=== PATIENT | female | born 1970 | race Hispanic/Latino ===

== ENCOUNTER 2023-07-10 05:21 | Inpatient (IN) | payer OTHER ==
[~2023-07-10] VITALS: Ht 157.5 cm; Wt 74.8 kg
[2023-07-10 05:53] LABS: BASOPHILS % 0.3 % (0.0-1.0); EOSINOPHILS % 0.3 % (0.0-6.0); HEMATOCRIT 40.6 % (34.2-44.1); HEMOGLOBIN 13.9 g/dL (12.0-16.0); LYMPHOCYTES # (AUTO) 0.7 (1.0-3.2); LYMPHOCYTES % 6.4 % (18.0-39.1); MEAN CORPUSCULAR HEMOGLOBIN 31.8 pg (28-32); MEAN CORPUSCULAR HGB CONC 34.2 g/dL (31-35); MEAN CORPUSCULAR VOLUME 92.9 fL (81-99); MONOCYTES % 0.3 % (4.4-11.3); NEUTROPHILS # (AUTO) 10.6 (2.1-6.9); NEUTROPHILS % 92.3 % (38.7-80.0); PLATELET COUNT 217 x10e3/uL (140-360); RED BLOOD COUNT 4.37 x10e6/uL (3.6-5.1); RED CELL DISTRIBUTION WIDTH 12.6 % (11.7-14.4); WHITE BLOOD COUNT 11.44 x10e3/uL (4.8-10.8)
[2023-07-10 06:03] LABS: BILIRUBIN,URINE NEGATIVE (NEGATIVE); CLARITY,URINE CLOUDY (CLEAR); COLOR,URINE YELLOW (YELLOW); GLUCOSE, URINE NEGATIVE (NEGATIVE); KETONES,URINE NEGATIVE (NEGATIVE); LEUKOCYTE ESTERASE ,URINE SMALL (NEGATIVE); NITRITE,URINE NEGATIVE (NEGATIVE); PH,URINE 6 (5 - 7); PROTEIN,URINE DIPSTICK TRACE (NEGATIVE); URINE UROBILINOGEN 0.2 mg/dL (0.2 - 1)
[2023-07-10 06:13] LABS: ALBUMIN 4.1 g/dL (3.5-5.0); ALBUMIN/GLOBULIN RATIO 1.3 (0.8-2.0); ANION GAP 14.8 mmol/L (8-16); BILIRUBIN,TOTAL 0.4 mg/dL (0.2-1.2); CALCIUM 8.8 mg/dL (8.4-10.2); CREATININE, SERUM 0.99 mg/dL (0.57-1.11); POTASSIUM 3.8 mmol/L (3.5-5.1); TOTAL PROTEIN 7.3 g/dL (6.5-8.1)
[2023-07-10] MEDS ORDERED: KETOROLAC TROMETHAMINE 30 MG/ML VIAL ONE ×2 (06:18→19:44)
[2023-07-10] MEDS ORDERED: ONDANSETRON HCL INJ 2MG/ML 2ML 2 MG/ML VIAL ONE ×3 (06:19→19:44)
[2023-07-10] MEDS ORDERED: SODIUM CHLORIDE 0.9% 1000ML 1,000 ML ONE ×2 (06:19→09:59)
[2023-07-10] MEDS: SODIUM CHLORIDE 0.9% 1000ML 1,000 ML IV STA (06:20)
[2023-07-10] MEDS: ONDANSETRON HCL INJ 2MG/ML 2ML 2 MG/ML VIAL IV STA ×2 (06:20→07:57)
[2023-07-10] MEDS: KETOROLAC TROMETHAMINE 30 MG/ML VIAL IV STA (06:20)
[2023-07-10 06:39] LABS: BACTERIA,URINE MODERATE /HPF; EPITHELIAL CELLS,URINE MODERATE /LPF; RBC,URINE 21-50 /HPF (0-5); WBC,URINE (MAN) >50 /HPF (0-5)
[2023-07-10] MEDS ORDERED: Morphine 4mg INJECTION 4 MG/ML INJ ONE ×2 (08:03→19:44)
[2023-07-10] MEDS: Morphine 4mg INJECTION 4 MG/ML INJ IV STA (08:04)
[2023-07-10] MEDS ORDERED: ONDANSETRON HCL INJ 2MG/ML 2ML 2 MG/ML VIAL IV PRN (09:30)
[2023-07-10] MEDS ORDERED: Morphine 4mg INJECTION 4 MG/ML INJ IV PRN (09:30)
[2023-07-10] MEDS ORDERED: HYDROMORPHONE 1MG/1ML INJ ONE ×2 (09:40→19:44)
[2023-07-10] MEDS: HYDROMORPHONE 1MG/1ML INJ IV PRN (09:47)
[2023-07-10] MEDS: SODIUM CHLORIDE 0.9% 1000ML 1,000 ML IV SCH (10:02)
[2023-07-10] MEDS ORDERED: ACETAMINOPHEN 1000 MG/100 ML 100 ML IV ONE (10:32)
[2023-07-10] MEDS: ACETAMINOPHEN 1000 MG/100 ML IV ONE (10:41)
[2023-07-10 11:43] LABS: INR 0.89; PROTHROMBIN TIME 12.7 seconds (11.9-14.5)
[2023-07-10] MEDS ORDERED: ACETAMINOPHEN 1000 MG/100 ML IV PRN (12:00)
[2023-07-10 12:16] VITALS: BP 103/61; PULSE 78; RESP 18; TEMP 98.3; O2SAT 97
[2023-07-10] MEDS ORDERED: METFORMIN HCL500 MG PO (12:31)
[2023-07-10] MEDS ORDERED: LISINOPRIL-HCT1 EAC1 PO (12:32)
[2023-07-10 13:00] VITALS: BP 103/61; PULSE 78; RESP 18; TEMP 98.3; O2SAT 97
[2023-07-10] MEDS ORDERED: LIDOCAINE HCL 1% LOCAL INJ 20 ML VIAL ONE (15:29)
[2023-07-10] MEDS ORDERED: SODIUM CHLORIDE 0.9% 250ML 250 ML ONE ×2 (15:29→15:34)
[2023-07-10] MEDS ORDERED: IOPAMIDOL 370 MG/ML 100 ML INFUS..BTL INJ ONE ×2 (15:29)
[2023-07-10] MEDS ORDERED: MIDAZOLAM HCL 2 MG/2 ML VIAL ONE (15:33)
[2023-07-10] MEDS ORDERED: FENTANYL CITRATE/PF 100MCG/2 ML INJ ONE (15:33)
[2023-07-10 17:30] VITALS: BP 112/68; PULSE 80; RESP 18; TEMP 98.6; O2SAT 98
[2023-07-10 18:49] LABS: COLOR,URINE YELLOW (YELLOW)
[2023-07-10 18:50] LABS: CLARITY,URINE TURBID (CLEAR)
[2023-07-10 18:52] LABS: BILIRUBIN,URINE NEGATIVE (NEGATIVE); GLUCOSE, URINE NEGATIVE (NEGATIVE); KETONES,URINE NEGATIVE (NEGATIVE); LEUKOCYTE ESTERASE ,URINE SMALL (NEGATIVE); NITRITE,URINE NEGATIVE (NEGATIVE); PH,URINE 5.5 (5 - 7); PROTEIN,URINE DIPSTICK TRACE (NEGATIVE); URINE UROBILINOGEN 0.2 mg/dL (0.2 - 1)
[2023-07-10 18:54] LABS: BACTERIA,URINE MANY /HPF; EPITHELIAL CELLS,URINE FEW /LPF; RBC,URINE >50 /HPF (0-5); WBC,URINE (MAN) >50 /HPF (0-5)
[2023-07-10] MEDS ORDERED: POLYETHYLENE GLYCOL 3350 17 GM PACK PO PRN (19:30)
[2023-07-10] MEDS ORDERED: METOPROLOL TARTRATE INJ 1 MG/ML VIAL IV PRN (19:30)
[2023-07-10] MEDS ORDERED: ACETAMINOPHEN 1000 MG/100 ML IV ONE (19:44)
[2023-07-10] MEDS ORDERED: SODIUM CHLORIDE 0.9% 1000 ML BAG ONE (19:44)
[2023-07-10 20:00] VITALS: BP 104/64; PULSE 88; RESP 18; TEMP 98.7; O2SAT 97
[2023-07-11] VITALS (10 sets, daily range): BP systolic 95–134; BP diastolic 36–73; PULSE 70–101; RESP 16–20; TEMP 98.3–100.3; O2SAT 90–98
[2023-07-11] MEDS ORDERED: CEFTRIAXONE 1 GM VIAL ONE ×2 (05:20→10:17)
[2023-07-11 05:32] LABS: BASOPHILS # (AUTO) 0.1 (0.0-0.1); BASOPHILS % 0.3 % (0.0-1.0); EOSINOPHILS # (AUTO) 0.1 (0.0-0.4); EOSINOPHILS % 0.3 % (0.0-6.0); HEMATOCRIT 37.3 % (34.2-44.1); HEMOGLOBIN 12.4 g/dL (12.0-16.0); LYMPHOCYTES # (AUTO) 0.7 (1.0-3.2); MEAN CORPUSCULAR HEMOGLOBIN 31.1 pg (28-32); MEAN CORPUSCULAR HGB CONC 33.2 g/dL (31-35); MEAN CORPUSCULAR VOLUME 93.5 fL (81-99); MONOCYTES # (AUTO) 0.8 (0.2-0.8); MONOCYTES % 3.3 % (4.4-11.3); NEUTROPHILS # (AUTO) 21.7 (2.1-6.9); NEUTROPHILS % 89.4 % (38.7-80.0); PLATELET COUNT 145 x10e3/uL (140-360); RED BLOOD COUNT 3.99 x10e6/uL (3.6-5.1); RED CELL DISTRIBUTION WIDTH 13.4 % (11.7-14.4); WHITE BLOOD COUNT 24.25 x10e3/uL (4.8-10.8)
[2023-07-11] MEDS ORDERED: HYDROMORPHONE 1MG/1ML INJ ONE ×2 (05:46→10:17)
[2023-07-11 06:02] LABS: ALBUMIN 3.1 g/dL (3.5-5.0); ALBUMIN/GLOBULIN RATIO 1.1 (0.8-2.0); ANION GAP 15.9 mmol/L (8-16); BILIRUBIN,TOTAL 0.5 mg/dL (0.2-1.2); CALCIUM 8.3 mg/dL (8.4-10.2); CREATININE, SERUM 1.19 mg/dL (0.57-1.11); POTASSIUM 3.9 mmol/L (3.5-5.1)
[2023-07-11 06:17] LABS: MAGNESIUM 1.3 MG/DL (1.3-2.1); PHOSPHORUS 2.7 MG/DL (2.3-4.7)
[2023-07-11 06:39] LABS: FREE T4 (FREE THYROXINE) 0.89 ng/dL (0.8-1.8); THYROID STIMULATING HORMONE 0.37 uIU/mL (0.350-4.940)
[2023-07-11 08:54] LABS: BAND NEUTROPHILS % (MANUAL) 8 %; LYMPHOCYTES % (MANUAL) 3 % (19-48); METAMYELOCYTES % (MANUAL) 5 % (0-0); MONOCYTES % (MANUAL) 3 % (3.4-9.0); NEUTROPHILS % (MANUAL) 81 % (40-74); PLATELET ESTIMATE ADEQUATE
[2023-07-11 08:55] LABS: PLATELET MORPHOLOGY COMMENT NORMAL; RBC MORPHOLOGY COMMENT NORMAL
[2023-07-11] MEDS ORDERED: DOCUSATE SODIUM 100 MG CAP ONE ×2 (10:06→10:17)
[2023-07-11] MEDS ORDERED: MAGNESIUM SULFATE 2GM/50ML 50 ML IV ONE (10:07)
[2023-07-11] MEDS ORDERED: PANTOPRAZOLE SOD 40 MG TABEC ONE ×2 (10:07→10:17)
[2023-07-11] MEDS ORDERED: MAGNESIUM SULFATE 2GM/50ML IV ONE (10:17)
[2023-07-11] MEDS ORDERED: Sodium Chloride 0.9% 50ML Bag ONE (10:17)
[2023-07-11] MEDS ORDERED: ONDANSETRON HCL 4 MG ORAL DISINTEGRATING TAB PO PRN (11:00)
[2023-07-11] MEDS: MAGNESIUM SULFATE 2GM/50ML 50 ML IV ONE (11:07)
[2023-07-11] MEDS: DOCUSATE SODIUM 100 MG CAP PO SCH (11:07)
[2023-07-11] MEDS: PANTOPRAZOLE SOD 40 MG TABEC PO SCH (11:07)
[2023-07-12] VITALS (11 sets, daily range): BP systolic 119–149; BP diastolic 64–96; PULSE 66–91; RESP 16–20; TEMP 97.2–99.1; O2SAT 94–98
[2023-07-12 05:38] LABS: BASOPHILS % 0.2 % (0.0-1.0); EOSINOPHILS # (AUTO) 0.1 (0.0-0.4); EOSINOPHILS % 0.3 % (0.0-6.0); HEMATOCRIT 32.8 % (34.2-44.1); HEMOGLOBIN 11.4 g/dL (12.0-16.0); LYMPHOCYTES # (AUTO) 1.2 (1.0-3.2); LYMPHOCYTES % 6.3 % (18.0-39.1); MEAN CORPUSCULAR HEMOGLOBIN 32.1 pg (28-32); MEAN CORPUSCULAR HGB CONC 34.8 g/dL (31-35); MEAN CORPUSCULAR VOLUME 92.4 fL (81-99); MONOCYTES # (AUTO) 0.6 (0.2-0.8); MONOCYTES % 3.1 % (4.4-11.3); NEUTROPHILS # (AUTO) 15.7 (2.1-6.9); NEUTROPHILS % 85.5 % (38.7-80.0); PLATELET COUNT 126 x10e3/uL (140-360); RED BLOOD COUNT 3.55 x10e6/uL (3.6-5.1); RED CELL DISTRIBUTION WIDTH 13.5 % (11.7-14.4)
[2023-07-12 06:19] LABS: ANION GAP 10.9 mmol/L (8-16); CALCIUM 8.7 mg/dL (8.4-10.2); CREATININE, SERUM 0.7 mg/dL (0.57-1.11); MAGNESIUM 2.1 MG/DL (1.3-2.1); POTASSIUM 3.9 mmol/L (3.5-5.1)
[2023-07-12] MEDS: ACETAMINOPHEN 325 MG TAB PO PRN (09:09)
[2023-07-12 10:39] LABS: BAND NEUTROPHILS % (MANUAL) 3 %; LYMPHOCYTES % (MANUAL) 6 % (19-48); MONOCYTES % (MANUAL) 5 % (3.4-9.0); NEUTROPHILS % (MANUAL) 86 % (40-74)
[2023-07-12 10:40] LABS: PLATELET ESTIMATE SLIGHTLY DECREASED; PLATELET MORPHOLOGY COMMENT NORMAL; RBC MORPHOLOGY COMMENT NORMAL
[2023-07-12] MEDS ORDERED: DOCUSATE SODIUM 100 MG CAP ONE ×2 (16:16→17:38)
[2023-07-12] MEDS ORDERED: CEFTRIAXONE 1 GM VIAL ONE ×2 (16:16→17:38)
[2023-07-12] MEDS ORDERED: ACETAMINOPHEN 325 MG TAB ONE ×2 (16:17→17:38)
[2023-07-12] MEDS ORDERED: HYDROMORPHONE 1MG/1ML INJ ONE (17:38)
[2023-07-12] MEDS ORDERED: Sodium Chloride 0.9% 50ML Bag ONE (17:38)
[2023-07-12] MEDS ORDERED: SODIUM CHLORIDE 0.9% 1000 ML BAG ONE (17:38)
[2023-07-12] MEDS ORDERED: PANTOPRAZOLE SOD 40 MG TABEC ONE (17:38)
[2023-07-12] MEDS ORDERED: SODIUM CHLORIDE 0.9% 1000ML 1,000 ML ONE ×2 (18:34→20:13)
[2023-07-13 03:26] VITALS: BP 144/84; PULSE 68; RESP 18; TEMP 98.8; O2SAT 98
[2023-07-13 06:47] VITALS: PULSE 74; RESP 18; O2SAT 96
[2023-07-13 07:36] VITALS: BP 139/79; PULSE 59; RESP 19; TEMP 97.8; O2SAT 98
[2023-07-13 07:51] LABS: BASOPHILS % 0.2 % (0.0-1.0); EOSINOPHILS # (AUTO) 0.1 (0.0-0.4); EOSINOPHILS % 0.9 % (0.0-6.0); HEMATOCRIT 34.8 % (34.2-44.1); HEMOGLOBIN 11.9 g/dL (12.0-16.0); LYMPHOCYTES # (AUTO) 1.6 (1.0-3.2); LYMPHOCYTES % 12.9 % (18.0-39.1); MEAN CORPUSCULAR HEMOGLOBIN 31.6 pg (28-32); MEAN CORPUSCULAR HGB CONC 34.2 g/dL (31-35); MEAN CORPUSCULAR VOLUME 92.3 fL (81-99); MONOCYTES # (AUTO) 0.6 (0.2-0.8); MONOCYTES % 4.9 % (4.4-11.3); NEUTROPHILS # (AUTO) 9.8 (2.1-6.9); NEUTROPHILS % 80.5 % (38.7-80.0); PLATELET COUNT 147 x10e3/uL (140-360); RED BLOOD COUNT 3.77 x10e6/uL (3.6-5.1); RED CELL DISTRIBUTION WIDTH 13.2 % (11.7-14.4); WHITE BLOOD COUNT 12.14 x10e3/uL (4.8-10.8)
[2023-07-13 08:49] LABS: ANION GAP 13.8 mmol/L (8-16); CALCIUM 8.7 mg/dL (8.4-10.2); CREATININE, SERUM 0.72 mg/dL (0.57-1.11); POTASSIUM 3.8 mmol/L (3.5-5.1)
[2023-07-13] MEDS ORDERED: ONDANSETRON ODT4 MG PO (11:22)
[2023-07-13] MEDS ORDERED: CEFUROXIME500 MG PO (11:22)
[2023-07-13] MEDS ORDERED: ACETAMINOPHEN325 M1 PO (11:22)
[2023-07-13 11:53] VITALS: BP 150/97; PULSE 73; RESP 17; TEMP 98.6; O2SAT 97
== END 2023-07-13 14:05 | disposition home or self-care (01) | DRG 872 ==
LOC: ER 05:25 → ERHOLD 09:27 → MED/SURG2 12:18
PROVIDERS: ADMIT Internal Medicine; ATTEND Internal Medicine
PROC: 0T9030Z Drainage of Right Kidney with Drainage Device, Percutaneous Approach (ICD-10-PCS; principal; 2023-07-10)
DX: A41.9 Sepsis, unspecified organism (principal); N13.6 Pyonephrosis; N10 Acute pyelonephritis; K52.9 Noninfective gastroenteritis and colitis, unspecified; R31.29 Other microscopic hematuria; I10 Essential (primary) hypertension; E11.65 Type 2 diabetes mellitus with hyperglycemia; Z79.84 Long term (current) use of oral hypoglycemic drugs; E66.9 Obesity, unspecified; Z68.30 Body mass index [BMI] 30.0-30.9, adult; N28.1 Cyst of kidney, acquired; K76.0 Fatty (change of) liver, not elsewhere classified; D64.9 Anemia, unspecified; M19.042 Primary osteoarthritis, left hand; M19.041 Primary osteoarthritis, right hand; Z11.52 Encounter for screening for COVID-19; Z79.899 Other long term (current) drug therapy; Z88.0 Allergy status to penicillin
CPT/HCPCS: 36415; 50432; 74176; 74470; 76942; 80048; 80053; 80061; 81001; 82948; 83036; 83690; 83735; 84100; 84439; 84443; 85025; 85610; 87040; 87086; 87186; 94760; 94799; 99152; 99153; 99284; C1729; C1769; J0696; J1170; J1885; J2001; J2250; J2270; J2405; J3475; J7030; J7050; Q9967; U0002

== ENCOUNTER → 2023-07-25 | Day surgery (SDC) | payer OTHER ==
[2023-07-21 16:41] LABS: ANION GAP 16.1 mmol/L (8-16); CALCIUM 9.9 mg/dL (8.4-10.2); CREATININE, SERUM 0.72 mg/dL (0.57-1.11); POTASSIUM 4.1 mmol/L (3.5-5.1)
[~2023-07-25] MED LIST: ACETAMINOPHEN325 M1 PO; CEFUROXIME500 MG PO; DEXAMETHASONE SOD PHOS INJ 4 MG/ML SDV ONE; FENTANYL CITRATE/PF 100MCG/2 ML INJ ONE; HYDROCODONE/APAP 5MG-325MG TAB ONE; IOPAMIDOL 370 MG/ML 100 ML INFUS..BTL INJ ONE; IOPAMIDOL 610MG/1ML 300 MG/ML VIAL IV ONE; KETOROLAC TROMETHAMINE 30 MG/ML VIAL ONE; LIDOCAINE HCL 2% LOCAL INJ 5 ML SDV VIAL INJ ONE; LISINOPRIL-HCT1 EAC1 PO; METFORMIN HCL500 MG PO; ONDANSETRON HCL INJ 2MG/ML 2ML 2 MG/ML VIAL ONE; ONDANSETRON ODT4 MG PO; PROPOFOL IV EMULSION 10 MG/ML 20 ML VIAL ONE; SEVOFLURANE INHAL SOLN 250 ML PEN BTL ONE
[2023-07-25] MEDS: LEVOFLOXACIN 500MG/D5W 100ML 100 ML IV ONE (06:27)
[2023-07-25] MEDS: LACTATED RINGER'S 1,000 ML ONE (06:28)
[2023-07-25] MEDS: HYDROCODONE/APAP 5MG-325MG TAB PO ONE (09:22)
[2023-07-25 09:45] VITALS: BP 128/75; PULSE 65; RESP 17; O2SAT 99
== END | disposition home or self-care (01) ==
LOC: OR 06:08
PROVIDERS: ATTEND Urology
DX: N13.30 Unspecified hydronephrosis (principal); Z93.6 Other artificial openings of urinary tract status; N20.1 Calculus of ureter; E11.9 Type 2 diabetes mellitus without complications; I10 Essential (primary) hypertension; Z88.0 Allergy status to penicillin; Z01.810 Encounter for preprocedural cardiovascular examination; Z01.812 Encounter for preprocedural laboratory examination; Z79.84 Long term (current) use of oral hypoglycemic drugs; Z79.899 Other long term (current) drug therapy; Z84.1 Family history of disorders of kidney and ureter
CPT/HCPCS: 36415 ×2; 50389; 52351; 74420; 74425; 74470; 80048; 82948; 93005; C1758; C1769; J1100; J1885; J1956; J2001; J2405; J2704; J3010; J7121; Q9967 ×2